=== PATIENT | male | born 1995 | race American Indian/Alaskan Native ===

== ENCOUNTER 2018-01-04 21:00 | Emergency (ER) | payer BC ==
[2018-01-04] MEDS ORDERED: DUONEB *Not for PRN Use IH ONE (21:18)
[2018-01-04] MEDS ORDERED: NACL 0.9% 500 ML 500 ML IV ONE (21:44)
[2018-01-04] MEDS ORDERED: TORADOL IV ONE (21:46)
--- NOTE | 2018-01-04 21:48 | Emergency Department Report ---
ED General Adult HPI - General Chief complaint: Adult Asthma Stated complaint: AIXA Time Seen by Provider: 01/04/18 21:31 Source: patient, family, RN notes reviewed Mode of arrival: Stretcher Limitations: No Limitations, Other (patient is a poor historian) - History of Present Illness Initial comments: This is a 22-year-old male who is unknown to this provider previously, he does not have a local primary care doctor, he reports a past medical history of asthma, childhood onset, 3 hospitalizations, no intubations. He presents to the ER with a complaint of anterior chest wall tightness and shortness of breath. His symptoms started at 8:00 this evening. The tightness does not radiate to the back, arms and neck. There is no vomiting or diaphoresis. There is no leg pain. There is no leg swelling. No recent cocaine or aspirin consumption. He is not sure if it feels like his typical asthma. He reports a recent trip to [facility]. He indicates his symptoms are mostly resolved at this time, he is asking to eat. He is also planning on a cellular phone currently. -: Gradual, hour(s) Location: chest Radiation: non-radiation Quality: aching Consistency: intermittent Improves with: none Worsens with: none Associated Symptoms: chest pain, cough, shortness of breath - Related Data Home Medications Medication Instructions Recorded Confirmed Last Taken Albuterol Sulfate [Albuterol 0.63% 0.63 mg IH DAILY 01/04/18 01/04/18 Unknown NEBS] Previous Rx's Medication Instructions Recorded Last Taken Type Acetaminophen [Tylenol Arthritis] 650 mg PO Q6HR PRN #30 tablet.er 01/04/18 Unknown Rx Albuterol Sulfate [Proair 90 mcg IH Q4HR PRN #2 aer.pow.ba 01/04/18 Unknown Rx Respiclick] Aspirin [Aspirin BABY CHEW TAB] 81 mg PO QDAY #30 tab.chew 01/04/18 Unknown Rx Allergies Allergy/AdvReac Type Severity Reaction Status Date / Time No Known Allergies Allergy Verified 01/04/18 21:14 ED Review of Systems ROS: Stated complaint: AIXA Other details as noted in HPI Constitutional: denies: fever Eyes: denies: vision change ENT: congestion Respiratory: shortness of breath, wheezing Cardiovascular: chest pain Gastrointestinal: denies: vomiting Genitourinary: as per HPI Musculoskeletal: as per HPI Skin: as per HPI Neurological: as per HPI Psychiatric: as per HPI Hematological/Lymphatic: as per HPI ED Past Medical Hx - Past Medical History Previous Medical History?: Yes Hx Asthma: Yes - Social History Smoking Status: Never Smoker Substance Use Type: None - Medications Home Medications: Home Medications Medication Instructions Recorded Confirmed Last Taken Type Acetaminophen [Tylenol Arthritis] 650 mg PO Q6HR PRN #30 tablet.er 01/04/18 Unknown Rx Albuterol Sulfate [Albuterol 0.63% 0.63 mg IH DAILY 01/04/18 01/04/18 Unknown History NEBS] Albuterol Sulfate [Proair 90 mcg IH Q4HR PRN #2 aer.[email or web address] 01/04/18 Unknown Rx Respiclick] Aspirin [Aspirin BABY CHEW TAB] 81 mg PO QDAY #30 tab.chew 01/04/18 Unknown Rx ED Physical Exam - General Limitations: No Limitations General appearance: alert, in no apparent distress - Head Head exam: Present: atraumatic, normocephalic - Eye Eye exam: Present: normal appearance, EOMI. Absent: nystagmus - ENT ENT exam: Present: normal exam, normal orophraynx, mucous membranes moist, normal external ear exam - Neck Neck exam: Present: normal inspection, full ROM - Respiratory Respiratory exam: Present: normal lung sounds bilaterally, rhonchi. Absent: rales - Cardiovascular Cardiovascular Exam: Present: regular rate, normal rhythm, normal heart sounds. Absent: bradycardia, tachycardia, irregular rhythm, systolic murmur, diastolic murmur, rubs, gallop - GI/Abdominal GI/Abdominal exam: Present: soft, normal bowel sounds. Absent: distended, tenderness, guarding, rebound, rigid, pulsatile mass - Rectal Rectal exam: Present: deferred - Extremities Exam Extremities exam: Present: normal inspection, full ROM, normal capillary refill , other (there is no palpable cord. There is a negative Homans sign. Compartment soft.2+ pulses noted in the bilateral upper, lower extremities. Compartments soft. No long bony tenderness. The pelvis is stable.). Absent: pedal edema, joint swelling, calf tenderness - Back Exam Back exam: Present: normal inspection - Neurological Exam Neurological exam: Present: alert, oriented X3, CN II-XII intact, normal gait, other (Extraocular movements intact. Tongue midline. No facial droop. Facial sensation intact to light touch in the V1, V2, V3 distribution bilaterally. 5 and 5 strength in 4 extremities.. Sensation is intact to light touch in 4 extremities.). Absent: motor sensory deficit - Psychiatric Psychiatric exam: Present: normal affect, normal mood - Skin Skin exam: Present: warm, dry, intact, normal color. Absent: rash ED Course Vital Signs 01/04/18 01/04/18 01/04/18 21:16 21:22 21:24 Temperature 98.3 F Pulse Rate 73 Pulse Rate [ 74 Bilateral Throughout] Respiratory 20 Rate Respiratory 16 Rate [Bilateral Throughout] Blood Pressure 134/74 [Right] O2 Sat by Pulse 94 94 Oximetry 01/04/18 01/05/18 23:38 00:50 Temperature Pulse Rate 70 70 Pulse Rate [ Bilateral Throughout] Respiratory 18 18 Rate Respiratory Rate [Bilateral Throughout] Blood Pressure 128/75 134/73 [Right] O2 Sat by Pulse 97 97 Oximetry - Reevaluation(s) Reevaluation #1: 01/04/18 23:33 Differential diagnosis, including but not limited to: Asthma, pneumonia, costochondritis, acute coronary syndrome, pulmonary embolus, myocarditis, pericarditis Assessment and plan: 22-year-old male, low risk by PHANI score, low risk by heart score, low risk by well's criteria, perc negative, with a negative d-dimer , with a primary complaint of chest wall pain, cough, wheezing and shortness of breath. He endorses this feels somewhat different from his typical asthma. The patient is a wandering and poor historian, and is afebrile with reassuring vital signs and has a benign physical exam. He is playing on a cellular phone during my interview. He has very faint rhonchi. We will check troponin 2, EKG 2, and treat him supportively and symptomatically. He is in no distress at this time, at low risk for major adverse cardiac event, is suitable to follow up with outpatient primary care or cardiology. Reevaluation #2: 01/05/18 01:57 Troponin negative 2. Patient playing on a cell phone. He is in no distress. His wheezing has resolved. He is saturating well. He will be discharged at this time. ED Medical Decision Making - Lab Data Result diagrams: 01/04/18 22:24 01/04/18 22:24 Vital Signs 01/04/18 01/04/18 01/04/18 21:16 21:22 21:24 Temperature 98.3 F Pulse Rate 73 Pulse Rate [ 74 Bilateral Throughout] Respiratory 20 Rate Respiratory 16 Rate [Bilateral Throughout] Blood Pressure 134/74 [Right] O2 Sat by Pulse 94 94 Oximetry Lab Results 01/04/18 01/04/18 01/04/18 Range/Units 22:24 22:24 22:24 WBC 5.5 (4.5-11.0) K/mm3 RBC 4.91 (3.65-5.03) M/mm3 Hgb 14.5 (11.8-15.2) gm/dl Hct 43.6 (35.5-45.6) % MCV 89 (84-94) fl MCH 30 (28-32) pg MCHC 33 (32-34) % RDW 13.1 L (13.2-15.2) % Plt Count 278 (140-440) K/mm3 PT 14.0 (12.2-14.9) Sec. INR 1.03 (0.87-1.13) D-Dimer < 135.0 (0-234) ng/mlDDU Sodium (137-145) mmol/L Potassium (3.6-5.0) mmol/L Chloride (98-107) mmol/L Carbon Dioxide (22-30) mmol/L Anion Gap mmol/L BUN (9-20) mg/dL Creatinine (0.8-1.5) mg/dL Estimated GFR ml/min BUN/Creatinine Ratio % Glucose (75-100) mg/dL Calcium (8.4-10.2) mg/dL Troponin T < 0.010 (0.00-0.029) ng/mL 01/04/18 Range/Units 22:24 WBC (4.5-11.0) K/mm3 RBC (3.65-5.03) M/mm3 Hgb (11.8-15.2) gm/dl Hct (35.5-45.6) % MCV (84-94) fl MCH (28-32) pg MCHC (32-34) % RDW (13.2-15.2) % Plt Count (140-440) K/mm3 PT (12.2-14.9) Sec. INR (0.87-1.13) D-Dimer (0-234) ng/mlDDU Sodium 141 (137-145) mmol/L Potassium 4.2 (3.6-5.0) mmol/L Chloride 103.0 (98-107) mmol/L Carbon Dioxide 28 (22-30) mmol/L Anion Gap 14 mmol/L BUN 12 (9-20) mg/dL Creatinine 0.7 L (0.8-1.5) mg/dL Estimated GFR > 60 ml/min BUN/Creatinine Ratio 17 % Glucose 101 H (75-100) mg/dL Calcium 9.2 (8.4-10.2) mg/dL Troponin T (0.00-0.029) ng/mL - EKG Data -: EKG Interpreted by Me EKG shows normal: sinus rhythm, axis, intervals, QRS complexes, ST-T waves - EKG Data When compared to previous EKG there are: previous EKG unavailable 01/04/18 23:33 Sinus, 60 bpm, normal axis, normal intervals, not a STEMI. - Radiology Data Radiology results: image reviewed interpreted by me: X-ray of the chest, interpreted by me, no acute disease. Critical care attestation.: If time is entered above; I have spent that time in minutes in the direct care of this critically ill patient, excluding procedure time. ED Disposition Clinical Impression: Chest wall pain, History of asthma Disposition: DC-01 TO HOME OR SELFCARE Is pt being admited?: No Does the pt Need Aspirin: No Condition: Good Instructions: Chest Pain (ED) Additional Instructions: Take the medications as needed/directed. Follow up with either primary care as listed or cardiology as listed within the next 3-5 days for the patient's chest pain. Return to the ER right away with new pain, worsened pain, migration of pain, fevers, chills, lethargy, irritability, projectile vomiting, change in mental status, confusion, inability to tolerate liquid feeds. Prescriptions: Acetaminophen [Tylenol Arthritis] 650 mg PO Q6HR PRN #30 tablet.er PRN Reason: Pain Albuterol Sulfate [Proair Respiclick] 90 mcg IH Q4HR PRN #2 aer.pow.ba PRN Reason: Wheezing Aspirin [Aspirin BABY CHEW TAB] 81 mg PO QDAY #30 tab.chew Referrals: PRIMARY CARE,MD [Primary Care Provider] - 3-[address] [facility] [Provider Group] - 3-5 Days [facility] [Provider Group] - 3-[address] [facility] [Provider Group] - 3-5 Days
[2018-01-04 22:52] LABS: Hematocrit 43.6 % (35.5-45.6); Hemoglobin 14.5 gm/dl (11.8-15.2); Mean Corpuscular HGB Conc 33 % (32-34); Mean Corpuscular Hemoglobin 30 pg (28-32); Mean Corpuscular Volume 89 fl (84-94); Platelet Count 278 K/mm3 (140-440); Red Blood Count 4.91 M/mm3 (3.65-5.03); Red Cell Distribution Width 13.1 % (13.2-15.2)
[2018-01-04 22:53] LABS: INR 1.03 (0.87-1.13)
[2018-01-04 22:56] LABS: BUN/Creatinine Ratio 17; Blood Urea Nitrogen 12 mg/dL (9-20); Calcium 9.2 mg/dL (8.4-10.2); Hemolysis Index 37
[2018-01-05 02:11] VITALS: BP 134/78
[2018-01-05] MEDS ORDERED: DUONEB *Not for PRN Use IH SCH (08:00)
--- NOTE | 2018-01-05 16:20 | XRay Report ---
FINAL REPORT EXAM: XR CHEST ROUTINE 2V HISTORY: Chest Pain TECHNIQUE: PA and lateral views of the chest Comparison: None FINDINGS: There is no evidence of infiltrate, pneumothorax or pleural fluid collection. The cardiomediastinal silhouette is normal in appearance. The bony structures are unremarkable. IMPRESSION: 1. Normal study.
== END 2018-01-05 02:05 | disposition home or self-care (01) ==
LOC: ED 21:00
DX: R07.89 Other chest pain (principal); R06.02 Shortness of breath; J45.909 Unspecified asthma, uncomplicated
CPT/HCPCS: 36415; 71046; 80048; 84484; 85027; 85379; 85610; 93005; 93010; 94640; 96374; 99285; J1885; J7040